=== PATIENT | female | born 1955 | race Asian ===

== ENCOUNTER 2017-10-20 09:34 | Emergency (ER) | END 2017-10-20 13:00 | disposition home or self-care (01) ==

== ENCOUNTER 2019-06-18 10:29 | Emergency (ER) | payer OTHER ==
[~2019-06-18] VITALS: Ht 162.6 cm; Wt 79.0 kg
[~2019-06-18 10:29] MED LIST: ACET325T33 PO; BENA40TA56 PO; IBUP-1561 PO; METF500T24 PO; SIMV40TA2 PO
[2019-06-18 10:34] VITALS: BP 150/75; PULSE 99; RESP 18; Ht 162.6 cm; Wt 79.0 kg
== END 2019-06-18 15:48 | disposition home or self-care (01) ==
LOC: FTE 10:29
DX: S16.1XXA Strain of muscle, fascia and tendon at neck level, initial encounter (principal); R51 Headache; S29.9XXA Unspecified injury of thorax, initial encounter; X50.0XXA Overexertion from strenuous movement or load, initial encounter; Y92.9 Unspecified place or not applicable; Z79.84 Long term (current) use of oral hypoglycemic drugs
CPT/HCPCS: 70450; 71046; 72072; 72100; 72125; 76536; Z7502